=== PATIENT | male | born 1990 | race Two or more races ===

== ENCOUNTER 2021-09-06 21:15 | Emergency (ER) | payer OTHER ==
[~2021-09-06] VITALS: Ht 175.3 cm; Wt 81.6 kg
[~2021-09-06 21:15] MED LIST: KETO10TA2 PO; ORPH100T PO
[2021-09-06] MEDS ORDERED: OSEL75CA PO (23:23)
== END 2021-09-06 23:35 | disposition home or self-care (01) ==
LOC: ER 21:15
DX: J10.1 Influenza due to other identified influenza virus with other respiratory manifestations (principal); R53.81 Other malaise; Z20.822 Contact with and (suspected) exposure to COVID-19

== ENCOUNTER 2023-07-10 09:59 | Emergency (ER) | payer OTHER ==
[~2023-07-10] VITALS: Ht 175.3 cm; Wt 79.4 kg
[~2023-07-10 09:59] MED LIST changes: +OSEL75CA PO
[2023-07-10] MEDS ORDERED: CEFTRIAXONE SODIUM 1,000 MG VIAL IM ONE (11:45)
== END 2023-07-10 12:08 | disposition home or self-care (01) ==
LOC: ER 09:59
DX: J03.80 Acute tonsillitis due to other specified organisms (principal); J32.8 Other chronic sinusitis